=== PATIENT | female | born 1980 | race Caucasian/White ===

== ENCOUNTER 2018-12-11 15:30 | Emergency (ER) | payer MEDICAID ==
[2018-12-11] MEDS ORDERED: Tetracaine HCl/PF 0.5% 4 ML Bottle EYEBOTH ONE (16:30)
--- NOTE | 2018-12-11 16:34 | EDM.PDOC ---
ED HPI GENERAL MEDICAL PROBLEM - General Chief Complaint: ENT Problem Stated Complaint: EAR ISSUES Time Seen by Provider: 12/11/18 16:33 Source of Information: Reports: Patient - History of Present Illness INITIAL COMMENTS - FREE TEXT/NARRATIVE: HISTORY AND PHYSICAL: History of present illness: A shunt presents with several days of bilateral ear pain no fever nausea vomiting chills sweats Review of systems: As per history of present illness and below otherwise all systems reviewed and negative. Past medical history: As per history of present illness and as reviewed below otherwise noncontributory. Surgical history: As per history of present illness and as reviewed below otherwise noncontributory. Social history: No reported history of drug or alcohol abuse. Family history: As per history of present illness and as reviewed below otherwise noncontributory. Physical exam: HEENT: Atraumatic, normocephalic, pupils reactive, negative for conjunctival pallor or scleral icterus, mucous membranes moist, throat clear, neck supple, nontender, trachea midline. Reddened tympanic membrane with bulge on the right left is dull with loss of landmarks no mastoid tenderness right or left no meningeal signs Lungs: Clear to auscultation, breath sounds equal bilaterally, chest nontender. Heart: S1S2, regular, negative for clicks, rubs, or JVD. Abdomen: Soft, nondistended, nontender. Negative for masses or hepatosplenomegaly. Negative for costovertebral tenderness. Pelvis: Stable nontender. Genitourinary: Deferred. Rectal: Deferred. Extremities: Atraumatic, negative for cords or calf pain. Neurovascular unremarkable. Neuro: Awake, alert, oriented. Cranial nerves II through XII unremarkable. Cerebellum unremarkable. Motor and sensory unremarkable throughout. Exam nonfocal. Diagnostics: []Clinical Therapeutics: []Amoxicillin Impression: [] helen Definitive disposition and diagnosis as appropriate pending reevaluation and review of above. 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: Neurological History: Reports: None Endocrine/Metabolic History: Reports: None Hematologic History: Reports: None Immunologic History: Reports: None Oncologic (Cancer) History: Reports: None Dermatologic History: Reports: None - Infectious Disease History Infectious Disease History: Reports: Chicken Pox - Past Surgical History Head Surgeries/Procedures: Reports: None Female Surgical History: Reports: Section Other Musculoskeletal Surgeries/Procedures:: Right ACL Social & Family History - Family History Family Medical History: Noncontributory - Tobacco Use Smoking Status *Q: Never Smoker Second Hand Smoke Exposure: No - Caffeine Use Caffeine Use: Reports: Coffee - Recreational Drug Use Recreational Drug Use: No ED ROS GENERAL - Review of Systems Review Of Systems: See Below ED EXAM, GENERAL - Physical Exam Exam: See Below Course - Vital Signs Last Recorded V/S: Last Vital Signs Temp 97.1 F 12/11/18 15:46 Pulse 51 L 12/11/18 15:46 Resp 16 12/11/18 15:46 BP 132/75 12/11/18 15:46 Pulse Ox 97 12/11/18 15:46 - Orders/Labs/Meds Orders: Active Orders 24 hr Category Date Time Status Tetracaine HCl/PF [Tetracaine 0.5% Steri-Unit Misa] Med 12/11/18 16:30 Once 1 ml EYEBOTH ASDIRECTED ONE Departure - Departure Time of Disposition: 16:34 Disposition: Home, Self-Care 01 Condition: Good Clinical Impression: Otitis media - Discharge Information Referrals: PCP,None [Primary Care Provider] - Additional Instructions: The following information is given to patients seen in the emergency department who are being discharged to home. This information is to outline your options for follow-up care. We provide all patients seen in our emergency department with a follow-up referral. The need for follow-up, as well as the timing and circumstances, are variable depending upon the specifics of your emergency department visit. If you don't have a primary care physician on staff, we will provide you with a referral. We always advise you to contact your personal physician following an emergency department visit to inform them of the circumstance of the visit and for follow-up with them and/or the need for any referrals to a consulting specialist. The emergency department will also refer you to a specialist when appropriate. This referral assures that you have the opportunity for follow-up care with a specialist. All of these measure are taken in an effort to provide you with optimal care, which includes your follow-up. Under all circumstances we always encourage you to contact your private physician who remains a resource for coordinating your care. When calling for follow-up care, please make the office aware that this follow-up is from your recent emergency room visit. If for any reason you are refused follow-up, please contact the [facility] emergency department at and asked to speak to the emergency department charge nurse. - My Orders Last 24 Hours: My Active Orders 12/11/18 16:30 Tetracaine HCl/PF [Tetracaine 0.5% Steri-Unit Misa] 1 ml EYEBOTH ASDIRECTED ONE - Assessment/Plan Last 24 Hours: My Active Orders 12/11/18 16:30 Tetracaine HCl/PF [Tetracaine 0.5% Steri-Unit Misa] 1 ml EYEBOTH ASDIRECTED ONE
== END 2018-12-11 16:59 | disposition home or self-care (01) ==
LOC: MW.ED 15:30
DX: H66.93 Otitis media, unspecified, bilateral (principal)
CPT/HCPCS: 99282; 99283

== ENCOUNTER 2019-02-12 09:41 | Emergency (ER) | payer BC, MEDICAID ==
[2019-02-12] MEDS ORDERED: Ketorolac 60 MG/2 ML SDV IM ONE (10:09)
--- NOTE | 2019-02-12 10:13 | EDM.PDOC ---
ED HPI GENERAL MEDICAL PROBLEM - General Chief Complaint: Lower Extremity Injury/Pain Stated Complaint: SPOKE TO NURSE Time Seen by Provider: 02/12/19 10:00 Source of Information: Reports: Patient History Limitations: Reports: No Limitations - History of Present Illness INITIAL COMMENTS - FREE TEXT/NARRATIVE: HISTORY AND PHYSICAL: History of present illness: Patient is a 39-year-old female who presents to the emergency room today with complaints of right knee pain. She states on Tuesday she was showing a horse when the horse pushed her leg against a metal fence. She had a twisting injury of the lower extremity. She reports she had a previous ACL tear which she had surgically fixed approximately 2 years ago. She states she has been ambulatory although does cause increased pain and feels that her knee is "slipping". She denies any numbness or tingling of the affected extremity. Review of systems: As per history of present illness and below otherwise all systems reviewed and negative. Past medical history: As per history of present illness and as reviewed below otherwise noncontributory. Surgical history: As per history of present illness and as reviewed below otherwise noncontributory. Social history: See social history for further information Family history: As per history of present illness and as reviewed below otherwise noncontributory. Physical exam: General: Well-developed and well-nourished 39-year-old female. Alert and oriented. Nontoxic appearing and in no acute distress. HEENT: Atraumatic, normocephalic, pupils equal and reactive bilaterally, negative for conjunctival pallor or scleral icterus, mucous membranes moist, TMs normal bilaterally, throat clear, neck supple, nontender, trachea midline. No drooling or trismus noted. No meningeal signs. No hot potato voice noted. Lungs: Clear to auscultation, breath sounds equal bilaterally, chest nontender. Heart: S1S2, regular rate and rhythm without overt murmur Abdomen: Soft, nondistended, nontender. Negative for masses or hepatosplenomegaly. Negative for costovertebral tenderness. Pelvis: Stable nontender. Genitourinary: Deferred. Rectal: Deferred. Skin: Bruising noted to the right lateral knee. Otherwise skin is intact, warm, dry. No lesions or rashes noted. Extremities: Pain with palpation of the medial and lateral right knee. Mild soft tissue swelling with healing bruising noted to the right lateral knee. No knee instability with negative drawer test. She moves all extremities per self with difficulty or deficits, negative for cords or calf pain. Neurovascular unremarkable. Neuro: Awake, alert, oriented. Cranial nerves II through XII unremarkable. Cerebellum unremarkable. Motor and sensory unremarkable throughout. Exam nonfocal. Notes: Patient is aware of the limitations of ER imaging. It is likely that the patient is getting need an MRI as she did previously have an ACL tear and feels that this could be a possibility today. She does seek orthopedic care at [facility], her primary residence. X-ray shows no acute fracture or dislocation. Postsurgical changes secondary to previous ACL repair noted. This information was shared with the patient. We discussed appropriate follow-up with the orthopedic provider. Patient given crutches and knee immobilizer with education. Patient is requesting pain management. We'll give her tramadol for her evening use and diclofenac during the day. Medication education was reviewed and discussed. Supportive care measures were reviewed and discussed. Voices understanding and is agreeable to plan of care. Denies any further questions or concerns at this time. Diagnostics: X-ray Therapeutics: Toradol, knee immobilizer and crutches Prescription: Tramadol (#15) Diclofenac (#30) Impression: Right knee injury Plan: 1. Rest, ice, elevate the affected extremity. Please wear the knee immobilizer and crutches as directed. 2. Tylenol and/or Ibuprofen as needed for pain management. 3. Follow up with the Orthopedic provider as we discussed. Return to the ED as needed and as discussed. Definitive disposition and diagnosis as appropriate pending reevaluation and review of above. 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: Neurological History: Reports: None Endocrine/Metabolic History: Reports: None Hematologic History: Reports: None Immunologic History: Reports: None Oncologic (Cancer) History: Reports: None Dermatologic History: Reports: None - Infectious Disease History Infectious Disease History: Reports: Chicken Pox - Past Surgical History Head Surgeries/Procedures: Reports: None Female Surgical History: Reports: Section Musculoskeletal Surgical History: Reports: Other (See Below) Other Musculoskeletal Surgeries/Procedures:: Right ACL Social & Family History - Family History Family Medical History: Noncontributory - Tobacco Use Smoking Status *Q: Never Smoker - Caffeine Use Caffeine Use: Reports: Coffee Review of Systems - Review of Systems Review Of Systems: ROS reveals no pertinent complaints other than HPI. ED EXAM, GENERAL - Physical Exam Exam: See Below (See dictation) Course - Vital Signs Last Recorded V/S: Last Vital Signs Temp 97.0 F 02/12/19 09:53 Pulse 70 02/12/19 09:53 Resp 16 02/12/19 09:53 BP 118/76 02/12/19 09:53 Pulse Ox 98 02/12/19 09:53 - Orders/Labs/Meds Orders: Active Orders 24 hr Category Date Time Status DME for Discharge [COMM] Stat Oth 02/12/19 10:26 Ordered Meds: Medications Discontinued Medications Generic Name Dose Route Start Last Admin Trade Name Freq PRN Reason Stop Dose Admin Ketorolac Tromethamine 60 mg 02/12/19 10:09 02/12/19 10:14 Toradol IM 02/12/19 10:10 60 mg ONETIME ONE Administration Departure - Departure Time of Disposition: 11:05 Disposition: Home, Self-Care 01 Clinical Impression: Right knee injury Qualifiers: Encounter type: initial encounter Qualified Code(s): S89.91XA - Unspecified injury of right lower leg, initial encounter - Discharge Information Instructions: Knee Pain, Adult Referrals: PCP,Unknown [Primary Care Provider] - Forms: ED Department Discharge Additional Instructions: The following information is given to patients seen in the emergency department who are being discharged to home. This information is to outline your options for follow-up care. We provide all patients seen in our emergency department with a follow-up referral. The need for follow-up, as well as the timing and circumstances, are variable depending upon the specifics of your emergency department visit. If you don't have a primary care physician on staff, we will provide you with a referral. We always advise you to contact your personal physician following an emergency department visit to inform them of the circumstance of the visit and for follow-up with them and/or the need for any referrals to a consulting specialist. The emergency department will also refer you to a specialist when appropriate. This referral assures that you have the opportunity for follow-up care with a specialist. All of these measure are taken in an effort to provide you with optimal care, which includes your follow-up. Under all circumstances we always encourage you to contact your private physician who remains a resource for coordinating your care. When calling for follow-up care, please make the office aware that this follow-up is from your recent emergency room visit. If for any reason you are refused follow-up, please contact the [facility] Emergency Department at and asked to speak to the emergency department charge nurse. [facility] [address] [place] [id number] [facility] Specialty [facility] - [facility] Professional [address], [address] [place] [address] 1. Rest, ice, elevate the affected extremity. Please wear the knee immobilizer and crutches as directed. 2. Tylenol and/or Ibuprofen as needed for pain management. 3. Follow up with the Orthopedic provider as we discussed. Return to the ED as needed and as discussed. - My Orders Last 24 Hours: My Active Orders 02/12/19 10:26 DME for Discharge [COMM] Stat - Assessment/Plan Last 24 Hours: My Active Orders 02/12/19 10:26 DME for Discharge [COMM] Stat
--- NOTE | 2019-02-12 11:03 | CR ---
EXAMINATION: Right knee HISTORY: Pain COMPARISON: None TECHNIQUE: 3 views FINDINGS/IMPRESSION: There is no acute osseous abnormality, dislocation, or fracture. Bone mineralization and joint spaces are preserved. Postsurgical changes secondary to previous ACL repair noted.
== END 2019-02-12 11:16 | disposition home or self-care (01) ==
LOC: MW.ED 09:41
DX: S80.01XA Contusion of right knee, initial encounter (principal); W55.12XA Struck by horse, initial encounter
CPT/HCPCS: 73562; 96372; 99283; J1885